=== PATIENT | male | born 1965 | race Two or more races ===

== ENCOUNTER → 2018-11-11 | Outpatient (CLI) | payer OTHER ==
[~2018-11-11] VITALS: Ht 157.5 cm; Wt 81.6 kg
[~2018-11-11] MED LIST: ADENOSINE 69 MG in GIVE UN-DILUTED 0 ML IV ONE; ADENOSINE 90 MG/30 ML INJ IV ONE
== END | disposition home or self-care (01) ==
LOC: Rad HDHVI 08:15
PROVIDERS: ATTEND Internal Medicine Cardiovascular Disease
DX: I08.8 Other rheumatic multiple valve diseases (principal); K80.20 Calculus of gallbladder without cholecystitis without obstruction; I20.0 Unstable angina; I10 Essential (primary) hypertension
CPT/HCPCS: 78452; 82962; 93005; 93306; 96374; 96375; A9500; J0153